=== PATIENT | female | born 1990 | race American Indian/Alaskan Native ===

== ENCOUNTER 2018-06-26 08:04 | Emergency (ER) | payer MEDICAID ==
[2018-06-26] MEDS ORDERED: PERCOCET 5/325 PO ONE (09:10)
[2018-06-26] MEDS ORDERED: SOLU-Medrol IM ONE (09:10)
--- NOTE | 2018-06-26 09:21 | Emergency Department Report ---
ED General Adult HPI - General Chief complaint: Pain General Stated complaint: LUPUS FLARE Time Seen by Provider: 06/26/18 09:00 Source: patient Mode of arrival: Ambulatory Limitations: No Limitations - History of Present Illness Initial comments: hx lupus, RA c/o diffuse pain for a few days no fevers, vomiting, diarrhea, CP, SOB no injuries has pcp and on meds but not helping -: Gradual, days(s) (3) Location: back, upper extremity, lower extremity Radiation: non-radiation Severity scale (0 -10): 6 Quality: aching Consistency: constant Improves with: none Worsens with: none Associated Symptoms: denies other symptoms Treatments Prior to Arrival: none - Related Data Previous Rx's Medication Instructions Recorded Last Taken Type Naproxen [Naprosyn] 500 mg PO BID #20 tablet 06/26/18 Unknown Rx predniSONE [Deltasone] 40 mg PO QDAY #10 tab 06/26/18 Unknown Rx Allergies Allergy/AdvReac Type Severity Reaction Status Date / Time No Known Allergies Allergy Verified 06/26/18 09:15 ED Review of Systems ROS: Stated complaint: LUPUS FLARE Other details as noted in HPI Comment: All other systems reviewed and negative Musculoskeletal: as per HPI ED Past Medical Hx - Past Medical History Additional medical history: Lupus - Surgical History Past Surgical History?: No - Social History Smoking Status: Current Every Day Smoker Substance Use Type: None - Medications Home Medications: Home Medications Medication Instructions Recorded Confirmed Last Taken Type Naproxen [Naprosyn] 500 mg PO BID #20 tablet 06/26/18 Unknown Rx predniSONE [Deltasone] 40 mg PO QDAY #10 tab 06/26/18 Unknown Rx ED Physical Exam - General Limitations: No Limitations General appearance: alert, in no apparent distress - Head Head exam: Present: atraumatic, normocephalic - Eye Eye exam: Present: normal appearance, PERRL, EOMI Pupils: Present: normal accommodation - ENT ENT exam: Present: normal exam, mucous membranes moist - Neck Neck exam: Present: normal inspection, full ROM. Absent: tenderness - Respiratory Respiratory exam: Present: normal lung sounds bilaterally. Absent: respiratory distress, wheezes - Cardiovascular Cardiovascular Exam: Present: regular rate, normal rhythm. Absent: systolic murmur, diastolic murmur, rubs, gallop - GI/Abdominal GI/Abdominal exam: Present: soft, normal bowel sounds. Absent: tenderness - Extremities Exam Extremities exam: Present: normal inspection - Back Exam Back exam: Present: normal inspection - Neurological Exam Neurological exam: Present: alert, oriented X3 - Psychiatric Psychiatric exam: Present: normal affect, normal mood - Skin Skin exam: Present: warm, dry, intact, normal color. Absent: rash ED Course Vital Signs 06/26/18 08:06 Temperature 98 F Pulse Rate 99 H Respiratory 20 Rate Blood Pressure 154/94 O2 Sat by Pulse 98 Oximetry ED Medical Decision Making - Lab Data Result diagrams: 06/26/18 09:13 06/26/18 09:13 - Medical Decision Making states RA/lupus persistent diffuse pain despite compliance with meds exam benign plan- labs r/o acute process given toradol, percocet, solumedrol IM will need f/u with rheumatology and pcp - Differential Diagnosis RA flare, lupus, dehydration Critical care attestation.: If time is entered above; I have spent that time in minutes in the direct care of this critically ill patient, excluding procedure time. ED Disposition Clinical Impression: Rheumatoid arthritis flare, Systemic lupus erythematosus (SLE) in adult Disposition: DC-01 TO HOME OR SELFCARE Is pt being admited?: No Condition: Good Instructions: Rheumatoid Arthritis (ED) Prescriptions: predniSONE [Deltasone] 40 mg PO QDAY #10 tab Naproxen [Naprosyn] 500 mg PO BID #20 tablet Referrals: [facility] [Other] - 3-5 Days Time of Disposition: 12:20
[2018-06-26] MEDS ORDERED: TORADOL PO ONE (09:30)
[2018-06-26 11:49] LABS: Basophils % (Auto) 0.8 % (0.0-1.8); Eosinophils % (Auto) 0.4 % (0.0-4.3); Hematocrit 38.9 % (30.3-42.9); Hemoglobin 13.4 gm/dl (10.1-14.3); Lymphocytes # (Auto) 1.1 K/mm3 (1.2-5.4); Lymphocytes % (Auto) 21.2 % (13.4-35.0); Mean Corpuscular HGB Conc 35 % (30-34); Mean Corpuscular Volume 88 fl (79-97); Monocytes # (Auto) 0.5 K/mm3 (0.0-0.8); Monocytes % (Auto) 9.8 % (0.0-7.3); Platelet Count 269 K/mm3 (140-440); Red Blood Count 4.42 M/mm3 (3.65-5.03); Red Cell Distribution Width 12.1 % (13.2-15.2)
[2018-06-26 12:18] LABS: BUN/Creatinine Ratio 7; Blood Urea Nitrogen 4 mg/dL (7-17); Hemolysis Index 7
[2018-06-26 12:32] VITALS: BP 151/90
== END 2018-06-26 12:31 | disposition home or self-care (01) ==
LOC: ED 08:04
DX: M32.9 Systemic lupus erythematosus, unspecified (principal); M06.9 Rheumatoid arthritis, unspecified; F17.200 Nicotine dependence, unspecified, uncomplicated
CPT/HCPCS: 36415; 80048; 84703; 85025; 96372; 99283; J2930

== ENCOUNTER 2018-08-05 04:47 | Emergency (ER) | payer MEDICAID ==
[2018-08-05 05:04] VITALS: BP 139/86
[2018-08-05 05:32] LABS: Basophils # (Auto) 0.1 K/mm3 (0.0-0.1); Basophils % (Auto) 1.1 % (0.0-1.8); Eosinophils % (Auto) 0.6 % (0.0-4.3); Hematocrit 37.2 % (30.3-42.9); Hemoglobin 12.7 gm/dl (10.1-14.3); Lymphocytes # (Auto) 1.6 K/mm3 (1.2-5.4); Lymphocytes % (Auto) 34.8 % (13.4-35.0); Mean Corpuscular HGB Conc 34 % (30-34); Mean Corpuscular Volume 88 fl (79-97); Monocytes # (Auto) 0.4 K/mm3 (0.0-0.8); Monocytes % (Auto) 9.4 % (0.0-7.3); Platelet Count 207 K/mm3 (140-440); Red Blood Count 4.22 M/mm3 (3.65-5.03); Red Cell Distribution Width 12.1 % (13.2-15.2)
[2018-08-05 05:45] LABS: BUN/Creatinine Ratio 9; Blood Urea Nitrogen 6 mg/dL (7-17); Calcium 9.2 mg/dL (8.4-10.2); Hemolysis Index 12
--- NOTE | 2018-08-05 06:11 | Emergency Department Report ---
ED General Adult HPI - General Chief complaint: Vaginal Bleeding Stated complaint: LUPUS FLARE UP/HEAVY CYCLE Time Seen by Provider: 08/05/18 06:00 Source: patient Mode of arrival: Ambulatory Limitations: No Limitations - History of Present Illness Initial comments: Patient is a 27-year-old female presents to the emergency department with complaints of vaginal bleeding that began July 14. She states she is on Depo- Provera and has missed 2 of her shots. She usually gets shots every 3 months. She does not report any abdominal pain, vaginal discharge, urinary symptoms, nausea, vomiting, diarrhea, fever. She states she also has a past medical histo ry of SLE and states she has generalized body aches. She states she is in the process of moving to [place]. She states she left her medication and [place]. She states she takes 20 mg of prednisone, Plaquenil, hydrocodone, gabapentin. - Related Data Previous Rx's Medication Instructions Recorded Last Taken Type Naproxen [Naprosyn] 500 mg PO BID #20 tablet 06/26/18 Unknown Rx predniSONE [Deltasone] 40 mg PO QDAY #10 tab 06/26/18 Unknown Rx medroxyPROGESTERone ACETATE 10 mg PO QDAY 10 Days #10 tablet 08/05/18 Unknown Rx [Provera] predniSONE [Deltasone] 20 mg PO QDAY #10 tab 08/05/18 Unknown Rx Allergies Allergy/AdvReac Type Severity Reaction Status Date / Time No Known Allergies Allergy Verified 06/26/18 09:15 ED Review of Systems ROS: Stated complaint: LUPUS FLARE UP/HEAVY CYCLE Other details as noted in HPI Comment: All other systems reviewed and negative ED Past Medical Hx - Past Medical History Previous Medical History?: Yes Hx of Cancer: Yes (Cervical) Additional medical history: Lupus, LSE - Surgical History Past Surgical History?: Yes - Social History Smoking Status: Current Every Day Smoker Substance Use Type: None - Medications Home Medications: Home Medications Medication Instructions Recorded Confirmed Last Taken Type Naproxen [Naprosyn] 500 mg PO BID #20 tablet 06/26/18 Unknown Rx predniSONE [Deltasone] 40 mg PO QDAY #10 tab 06/26/18 Unknown Rx medroxyPROGESTERone ACETATE 10 mg PO QDAY 10 Days #10 tablet 08/05/18 Unknown Rx [Provera] predniSONE [Deltasone] 20 mg PO QDAY #10 tab 08/05/18 Unknown Rx ED Physical Exam - General Limitations: No Limitations General appearance: alert, in no apparent distress - Head Head exam: Present: atraumatic, normocephalic - Eye Eye exam: Present: normal appearance, PERRL - ENT ENT exam: Present: mucous membranes moist - Respiratory Respiratory exam: Present: normal lung sounds bilaterally. Absent: respiratory distress, wheezes, rales, rhonchi, stridor, chest wall tenderness, accessory muscle use, decreased breath sounds, prolonged expiratory - Cardiovascular Cardiovascular Exam: Present: regular rate, normal rhythm, normal heart sounds. Absent: systolic murmur, diastolic murmur, rubs, gallop - Neurological Exam Neurological exam: Present: alert, oriented X3 - Psychiatric Psychiatric exam: Present: normal affect, normal mood - Skin Skin exam: Present: warm, dry, other (discoloration of the scalp which pt states is chronic from her lupus, no scaling, no erythema, no drainage ) ED Course Vital Signs 08/05/18 04:57 Temperature 98.3 F Pulse Rate 89 Respiratory 18 Rate Blood Pressure 139/86 O2 Sat by Pulse 100 Oximetry ED Medical Decision Making - Lab Data Result diagrams: 08/05/18 05:23 08/05/18 05:23 Lab Results 08/05/18 08/05/18 08/05/18 Range/Units 05:23 05:23 05:23 WBC 4.6 (4.5-11.0) K/mm3 RBC 4.22 (3.65-5.03) M/mm3 Hgb 12.7 (10.1-14.3) gm/dl Hct 37.2 (30.3-42.9) % MCV 88 (79-97) fl MCH 30 (28-32) pg MCHC 34 (30-34) % RDW 12.1 L (13.2-15.2) % Plt Count 207 (140-440) K/mm3 Lymph % (Auto) 34.8 (13.4-35.0) % [place] % (Auto) 9.4 H (0.0-7.3) % Eos % (Auto) 0.6 (0.0-4.3) % Baso % (Auto) 1.1 (0.0-1.8) % Lymph # 1.6 (1.2-5.4) K/mm3 [place] # 0.4 (0.0-0.8) K/mm3 Eos # 0.0 (0.0-0.4) K/mm3 Baso # 0.1 (0.0-0.1) K/mm3 Seg Neutrophils % 54.1 (40.0-70.0) % Seg Neutrophils # 2.5 (1.8-7.7) K/mm3 Sodium 139 (137-145) mmol/L Potassium 3.8 (3.6-5.0) mmol/L Chloride 101.6 (98-107) mmol/L Carbon Dioxide 25 (22-30) mmol/L Anion Gap 16 mmol/L BUN 6 L (7-17) mg/dL Creatinine 0.7 (0.7-1.2) mg/dL Estimated GFR > 60 ml/min BUN/Creatinine Ratio 9 % Glucose 121 H (65-100) mg/dL Calcium 9.2 (8.4-10.2) mg/dL HCG, Qual Negative (Negative) - Medical Decision Making Patient is a 27-year-old female presents to the emergency department with comp laints of vaginal bleeding that began July 14. She states she is on Depo-Provera and has missed 2 of her shots. She usually gets shots every 3 months. She does not report any abdominal pain, vaginal discharge, urinary symptoms, nausea, vomiting, diarrhea, fever. She states she also has a past medical history of SLE and states she has generalized body aches. She states she is in the process of moving to [place]. She states she left her [facility] and [place]. She states she takes 20 mg of prednisone, Plaquenil, hydrocodone, gabapentin. VSS. labs WNL. pt pain treated while in the emergency department. pt given prescription for 10 days worth of her prednisone. advised pt that her other medications would need to be refilled by her PCP. discussed that she can take tylenol or ibuprofen for discomfort. pt requesting depo provera injection, advised pt that we do not administer this injection by the emergency department. advised pt that would give her provera and discussed to take as prescribed. follow up with a primary care doctor in next 2-3 days. Please see your primary care doctor to get back on your lupus medications. please follow up with your doctor who administers your depo provera. Return to emergency room for any new or worsening symptoms. Critical care attestation.: If time is entered above; I have spent that time in minutes in the direct care of this critically ill patient, excluding procedure time. ED Disposition Clinical Impression: Menorrhagia Qualifiers: Menorrahagia type: with irregular cycle Qualified Code(s): N92.1 - Excessive an d frequent menstruation with irregular cycle SLE (systemic lupus erythematosus) Qualifiers: Systemic lupus erythematosus type: unspecified Systemic lupus erythematosus organ involvement: unspecified Qualified Code(s): M32.9 - Systemic lupus erythematosus, unspecified Disposition: TO HOME OR SELFCARE Is pt being admited?: No Does the pt Need Aspirin: No Condition: Stable Instructions: Menorrhagia (ED) Additional Instructions: Please take medication as prescribed. Please follow up with a primary care doctor in next 2-3 days. Please see your primary care doctor to get back on your lupus medications. please follow up with your doctor who administers your depo provera. Return to emergency room for any new or worsening symptoms. Prescriptions: predniSONE [Deltasone] 20 mg PO QDAY #10 tab medroxyPROGESTERone ACETATE [Provera] 10 mg PO QDAY 10 Days #10 tablet Referrals: [facility] [Outside] - 2-3 Days [facility] [Provider Group] - 2-[address] [facility] [Outside] - 2-3 Days Time of Disposition: 06:41 Print Language: KYRGYZ
[2018-08-05] MEDS ORDERED: DECADRON IM ONE (06:37)
[2018-08-05] MEDS ORDERED: NORCO 5/325 PO ONE (06:37)
== END 2018-08-05 07:07 | disposition home or self-care (01) ==
LOC: ED 04:47
DX: M32.9 Systemic lupus erythematosus, unspecified (principal); N92.0 Excessive and frequent menstruation with regular cycle; F17.200 Nicotine dependence, unspecified, uncomplicated; Z79.899 Other long term (current) drug therapy; Z85.89 Personal history of malignant neoplasm of other organs and systems
CPT/HCPCS: 36415; 80048; 84703; 85025; 96372; 99283; J1100

== ENCOUNTER 2020-08-21 07:55 | Emergency (ER) | payer SELFPAY ==
[2020-08-21] MEDS ORDERED: ONDANSETRON 4 MG/2 ML INJ IV ONE (10:38)
[2020-08-21] MEDS ORDERED: SODIUM CHLORIDE 0.9% 1000 ML 1,000 ML IV ONE (10:38)
[2020-08-21] MEDS ORDERED: fentaNYL 100 MCG/2 ML INJ IV ONE (10:38)
[2020-08-21] MEDS ORDERED: methylPREDNISolone Sod Succinate 125 MG/2 ML INJ IV ONE (10:38)
--- NOTE | 2020-08-21 10:43 | Emergency Department Report ---
HPI - General Chief Complaint: Pain General Time Seen by Provider: 08/21/20 10:32 - HPI HPI: Room 4 The patient is a 29-year-old female present with a chief complaint of body aches. Patient states she believes her lupus is "flaring up." The patient st ates she has her typical symptoms which includes diffuse body aches with muscle soreness. Patient also complains of a headache and scalp pain. Patient states her symptoms have been present for the past 4 days. Patient denies nausea/vomiting or history of fever. Patient gives her pain a score of 8/10. ED Past Medical Hx - Past Medical History Previous Medical History?: Yes Additional medical history: Lupus, LSE, mixed connective tissue disease - Surgical History Past Surgical History?: No - Family History Family history: no significant - Social History Smoking Status: Current Every Day Smoker (1/2 pack/day) Substance Use Type: None (Denies illicit drug use) - Medications Home Medications: Home Medications Medication Instructions Recorded Confirmed Last Taken Type Naproxen [Naprosyn] 500 mg PO BID #20 tablet 06/26/18 Unknown Rx predniSONE [Deltasone] 40 mg PO QDAY #10 tab 06/26/18 Unknown Rx medroxyPROGESTERone ACETATE 10 mg PO QDAY 10 Days #10 tablet 08/05/18 Unknown Rx [Provera] predniSONE [Deltasone] 20 mg PO QDAY #10 tab 08/05/18 Unknown Rx Butalb/Acetamin/Caff 50-325-40 2 tab PO Q8HR PRN #30 tablet 08/21/20 Unknown Rx [Fioricet 50-325-40] Ibuprofen [Motrin 800 MG tab] 800 mg PO Q8HR PRN #20 tablet 08/21/20 Unknown Rx Prednisone [predniSONE 10 mg 10 mg PO .TAPER #1 tab.ds.pk 08/21/20 Unknown Rx (6-Day Pack, 21 Tabs)] ED Review of Systems ROS: Stated complaint: LUPUS FLARE UP Other details as noted in HPI Constitutional: denies: fever Eyes: denies: eye pain ENT: denies: throat pain Respiratory: no symptoms reported Cardiovascular: denies: chest pain Endocrine: no symptoms reported Gastrointestinal: denies: abdominal pain Genitourinary: denies: dysuria Musculoskeletal: arthralgia, myalgia Neurological: headache Physical Exam - Physical Exam Vital Signs: Vital Signs 08/21/20 08/21/20 08:17 10:28 Temperature 98.9 F Pulse Rate 102 H 100 H Respiratory 20 19 Rate Blood Pressure 152/103 Blood Pressure 152/99 [Left] O2 Sat by Pulse 100 100 Oximetry Physical Exam: GENERAL: The patient is well-developed well-nourished female lying on stretcher not appearing to be in acute distress. [] HEENT: Normocephalic. Atraumatic. Extraocular motions are intact. Patient has moist mucous membranes. NECK: Supple. No meningitic signs are noted. There is no nuchal rigidity CHEST/LUNGS: Clear to auscultation. There is no respiratory distress noted. HEART/CARDIOVASCULAR: Regular. There is no tachycardia. There is no gallop rub or murmur. ABDOMEN: Abdomen is soft, nontender. Patient has normal bowel sounds. There is no abdominal distention. SKIN: There is no rash. There is no edema. There is no diaphoresis. NEURO: The patient is awake, alert, and oriented. The patient is cooperative. The patient has no focal neurologic deficits. The patient has normal speech. Cranial nerves II through XII grossly intact. GCS 15 MUSCULOSKELETAL: There is no evidence of acute injury. ED Course Vital Signs 08/21/20 08/21/20 08:17 10:28 Temperature 98.9 F Pulse Rate 102 H 100 H Respiratory 20 19 Rate Blood Pressure 152/103 Blood Pressure 152/99 [Left] O2 Sat by Pulse 100 100 Oximetry ED Medical Decision Making - Lab Data Result diagrams: 08/21/20 10:37 08/21/20 10:38 Laboratory Tests 08/21/20 08/21/20 08/21/20 10:37 10:37 10:38 WBC 6.2 RBC 3.82 Hgb 12.5 Hct 35.1 MCV 92 MCH 33 H MCHC 36 H RDW 14.6 Plt Count 319 Lymph % (Auto) 22.9 [place] % (Auto) 7.5 H Eos % (Auto) 0.1 Baso % (Auto) 0.7 Lymph # (Auto) 1.4 [place] # (Auto) 0.5 Eos # (Auto) 0.0 Baso # (Auto) 0.0 Seg Neutrophils % 68.8 Seg Neutrophils # 4.3 Sodium 139 Potassium 3.3 L Chloride 99.9 Carbon Dioxide 28 Anion Gap 14 BUN 2 L Creatinine 0.4 L Estimated GFR > 60 BUN/Creatinine Ratio 5 Glucose 112 H Calcium 9.7 Total Creatine Kinase 112 HCG, Qual Negative - Differential Diagnosis Lupus flare Critical care attestation.: If time is entered above; I have spent that time in minutes in the direct care of this critically ill patient, excluding procedure time. ED Disposition Clinical Impression: Myalgia, Lupus, Headache, Hypokalemia Disposition: TO HOME OR SELFCARE Is pt being admited?: No Does the pt Need Aspirin: No Condition: Stable Instructions: Hypokalemia Additional Instructions: Return to the emergency department should you develop worsening symptoms, inabil ity to tolerate food or liquids, high fever or any other concerns Prescriptions: Butalb/Acetamin/Caff 50-325-40 [Fioricet 50-325-40] 2 tab PO Q8HR PRN #30 tablet PRN Reason: Headache Ibuprofen [Motrin 800 MG tab] 800 mg PO Q8HR PRN #20 tablet PRN Reason: Pain, Moderate (4-6) Prednisone [predniSONE 10 mg (6-Day Pack, 21 Tabs)] 10 mg PO .TAPER #1 tab.ds.pk Referrals: [facility] [Provider Group] - 3-5 Days Time of Disposition: 12:02
[2020-08-21 11:11] LABS: Basophils % (Auto) 0.7 % (0.0-1.8); Eosinophils % (Auto) 0.1 % (0.0-4.3); Hematocrit 35.1 % (30.3-42.9); Hemoglobin 12.5 gm/dl (10.1-14.3); Lymphocytes # (Auto) 1.4 K/mm3 (1.2-5.4); Lymphocytes % (Auto) 22.9 % (13.4-35.0); Mean Corpuscular HGB Conc 36 % (30-34); Mean Corpuscular Volume 92 fl (79-97); Monocytes # (Auto) 0.5 K/mm3 (0.0-0.8); Monocytes % (Auto) 7.5 % (0.0-7.3); Platelet Count 319 K/mm3 (140-440); Red Blood Count 3.82 M/mm3 (3.65-5.03); Red Cell Distribution Width 14.6 % (13.2-15.2)
[2020-08-21 11:22] LABS: BUN/Creatinine Ratio 5; Blood Urea Nitrogen 2 mg/dL (7-17); Calcium 9.7 mg/dL (8.4-10.2); Hemolysis Index 8
[2020-08-21] MEDS ORDERED: POTASSIUM CHLORIDE ER 20 MEQ TAB PO ONE (11:40)
[2020-08-21] MEDS ORDERED: BUTALB/ACETAMINOPHEN/CAFFEINE TAB PO ONE (11:59)
[2020-08-21] MEDS ORDERED: MORPHINE 4 MG/1 ML INJ IV ONE (11:59)
[2020-08-21 12:44] VITALS: BP 131/71
== END 2020-08-21 12:44 | disposition home or self-care (01) ==
LOC: ED 07:55
DX: M32.9 Systemic lupus erythematosus, unspecified (principal); M79.10 Myalgia, unspecified site; E87.6 Hypokalemia; R51.9 Headache, unspecified; F17.200 Nicotine dependence, unspecified, uncomplicated; Z79.899 Other long term (current) drug therapy
CPT/HCPCS: 36415; 80048; 82550; 84703; 85025; 96361; 96374; 96375; 99283; J2270; J2405; J2930; J3010; J7030